=== PATIENT | female | born 2000 | race Caucasian/White ===

== ENCOUNTER 2020-07-05 12:39 | Emergency (ER) | payer BC, SELFPAY ==
[2020-07-05 13:02] VITALS: BP 111/66; PULSE 90; RESP 18; TEMP 37.1; O2SAT 99
--- NOTE | 2020-07-05 13:03 | ED.URI ---
HPI - URI/Sore Throat General Chief Complaint: Upper Respiratory Infection Stated Complaint: congestion/sore throat Source: patient Mode of arrival: ambulatory Limitations: no limitations History of Present Illness HPI Narrative: Patient is a 20-year-old female who presents complaining of sore throat x2 days. She also reports mild congestion. She denies fever, cough or body aches. She reports Covid test 1 week ago for school which was negative. She denies taking [id number] medications for symptom relief at this time. elicited complaint: sore throat Related Data Home Medications Medication Instructions Recorded Confirmed No Home Medications 07/05/20 07/05/20 Allergies Allergy/AdvReac Type Severity Reaction Status Date / Time No Known Drug Allergies Allergy Mild Unverified 03/15/16 07:51 Review of Systems Review of Systems: Narrative: CONSTITUTIONAL: Reports intermittent fever and chills EYES: Denies visual changes, redness, or discharge. ENT: Reports sore throat CARDIOVASCULAR: Denies chest pain, palpitations, or edema. RESPIRATORY: Denies cough or dyspnea. GASTROINTESTINAL: Denies abdominal pain, nausea, vomiting, or diarrhea. GENITOURINARY: Denies dysuria or hematuria. SKIN: Denies rash or itching. MUSCULOSKELETAL: Denies back pain, joint pain, or myalgia. NEUROLOGIC: Denies headache, numbness, dizziness, or weakness. PSYCHIATRIC: Denies anxiety or depression. [facility] Past Medical History Medical History (Updated 07/05/20 @ 13:21 by EVARISTO Conner) No significant past medical history Surgical History Surgical History (Updated 07/05/20 @ 13:04 by EVARISTO Conner) No significant past surgical history Family History Family History (Updated 07/05/20 @ 13:04 by EVARISTO Conner) Other No significant family history Social History Social History (Updated 07/05/20 @ 13:05 by EVARISTO Conner) Smoking status: Never smoker Alcohol intake: never Substance use: never Living arrangements: with family Gender identity (if verbalized by the patient): Female Comments At the time of signature, I have reviewed and agree with nursing past medical, surgical, social, and family history unless otherwise noted. Please see nursing chart for further information. There is no relevant family history pertinent to the presenting complaint. Exam Narrative: Exam Narrative: GENERAL: Well-appearing, well-nourished, and in no acute distress. HEAD: Normocephalic, atraumatic. EYES: No redness or drainage. ENT: Mucous membranes pink and moist. Throat normal with mild erythema. Uvula midline. NECK: AROM. Supple. No lymphadenopathy. CHEST: No respiratory distress. HEART: Regular rate and rhythm. EXTREMITIES: Normal range of motion. SKIN: Warm, dry, no rash. NEURO: No focal deficits. Alert and oriented x3. Gait steady. PSYCH: Normal affect. No signs of depression or anxiety. MDM - URI/Sore Throat MDM Narrative Medical decision making narrative: Patient's rapid Covid is positive at this time. Discussed quarantine. Discussed treatment of symptoms. Patient is aware that if she develops chest pain or shortness of breath that she is to go to the emergency department immediately. Patient is stable for discharge home with outpatient follow-up as needed Differential Diagnosis Differential diagnosis: Likely upper respiratory infection, viral infection and other (Covid) Lab Data Labs: Rapid Covid positive Critical Care Time Critical Care Time Critical Care Time: No Discharge Plan Discharge Clinical Impression: COVID-19 Patient Disposition: Home, Self-Care Condition: Stable Instructions: COVID-19 (Coronavirus Disease 2019) (ED) Prescriptions: No Action No Home Medications RF: 0 Follow-up/Referrals: Marli Santiago MD [Primary Care Provider] - Stand Alone Forms: Work/School Release IP Time of Disposition: 13:21
== END 2020-07-05 13:33 | disposition home or self-care (01) ==
PROVIDERS: Emergency Provider Nurse Practitioner; PCP Pediatrics
DX: U07.1 COVID-19 (principal)
CPT/HCPCS: 87081; 87426; 87804; 87880; 99213; C9803; G0463

== ENCOUNTER 2020-10-21 19:00 | Emergency (ER) | payer BC, SELFPAY ==
--- NOTE | ~2020-10-21 | XR_ITS ---
EXAMINATION: XR hand LT min 3V DATE: 10/21/2020 19:30 INDICATION: Left hand pain. TECHNIQUE: 3 views of left hand were obtained. COMPARISON: None. FINDINGS: Bone alignment is normal. No fracture. Joint spaces are well maintained. IMPRESSION: 1. Normal left hand. Reviewed, dictated and finalized at location A. IMPRESSION: 1. Normal left hand.
[2020-10-21 19:03] VITALS: BP 131/88; PULSE 66; RESP 20; TEMP 36.2; O2SAT 100
[2020-10-21 19:45] VITALS: BP 155/87; PULSE 78; RESP 14; O2SAT 97
--- NOTE | 2020-10-21 19:47 | ED.GENADULT ---
HPI - General Adult General Chief complaint: Extremity Injury, Upper Stated complaint: hit by softball on left hand Time Seen by Provider: 10/21/20 19:02 Source: RN notes reviewed History of Present Illness HPI narrative: Patient presents emergency room from home for left hand pain. Patient states that approximately 130 today she was playing third base in baseball when a line drive with his head at her. She states that a line drive directly in the palm of her left hand was wearing a glove states that since that time she is had pain in her left hand worse with making a fist for pain in the wrist back she denies any other trauma or injury she took ibuprofen at approximately 2:00 denies any numbness or tingling in extremities Related Data Allergies Allergy/AdvReac Type Severity Reaction Status Date / Time No Known Drug Allergies Allergy Mild Unknown Verified 10/21/20 19:40 Review of Systems Review of Systems: Narrative: Gen.: Denies fevers or chills Musculoskeletal: See HPI Neuro: Denies numbness, tingling, weakness Skin: Denies rash Endo: Denies DM PMFSH Past Medical History Medical History (Updated 10/21/20 @ 19:50 by Hudson Ovalles DO) No significant past medical history Surgical History Surgical History (Updated 07/05/20 @ 13:04 by EVARISTO Conner) No significant past surgical history Family History Family History (Updated 07/05/20 @ 13:04 by EVARISTO Conner) Other No significant family history Social History Social History Smoking status: Never smoker Alcohol intake: never Substance use: never Gender identity (if verbalized by the patient): Female Exam Narrative: Exam Narrative: APPEARANCE: No acute distress, nontoxic, resting in bed Eyes: EOMI HEENT: Normocephalic, atraumatic, RESPIRATORY: No respiratory distress MUSCULOSKELETAl: Tender to palpation to the palmar aspect of the hand mild swelling no ecchymosis no tenderness of all 5 digits with full flexion-extension of all 5 MCP and IP joints, capillary refill less than 3 seconds in all 5 digits radial pulse 2+ neurovascular intact no tenderness to palpation of the wrist with pain with full extension of the wrist NEURO: Awake and alert. Following commands, speech normal, no focal deficits SKIN:: Warm, dry. Normal Color no rash or lesions Course Course Emergency Course: Discussed with patient results of workup and diagnosis. Discussed need for follow-up with primary care, proper use of medication, and reasons to return to the emergency department. Patient understands and agrees to current treatment plan Vital Signs Vital signs: Vital Signs Temperature 97.2 F L 10/21/20 19:03 Pulse Rate 66 10/21/20 19:03 Respiratory Rate 20 10/21/20 19:03 Blood Pressure 131/88 10/21/20 19:03 Pulse Oximetry 100 10/21/20 19:03 Temperature 97.2 F L 10/21/20 19:03 Pulse Rate 66 10/21/20 19:03 Respiratory Rate 20 10/21/20 19:03 Blood Pressure 131/88 10/21/20 19:03 Pulse Oximetry 100 10/21/20 19:03 Medical Decision Making Vital Signs Vital Signs: Vital Signs Temperature 97.2 F L 10/21/20 19:03 Pulse Rate 66 10/21/20 19:03 Respiratory Rate 20 10/21/20 19:03 Blood Pressure 131/88 10/21/20 19:03 Pulse Oximetry 100 10/21/20 19:03 Temperature 97.2 F L 10/21/20 19:03 Pulse Rate 66 10/21/20 19:03 Respiratory Rate 20 10/21/20 19:03 Blood Pressure 131/88 10/21/20 19:03 Pulse Oximetry 100 10/21/20 19:03 Imaging Data Radiologist's impression: ITS Impressions Hand X-Ray 10/21/20 19:31 IMPRESSION: 1. Normal left hand. Discharge Plan Discharge Clinical Impression: Contusion of hand, left Patient Disposition: Home, Self-Care Condition: Stable Instructions: Antibiotic Form, Contusion in Adults (ED) Additional Instructions: Return for increasing pain, numbness or tingling in the extremiti
== END 2020-10-21 19:45 | disposition home or self-care (01) ==
PROVIDERS: Emergency Provider Emergency Medicine; PCP Pediatrics
DX: S60.222A Contusion of left hand, initial encounter (principal); W21.07XA Struck by softball, initial encounter; Y93.64 Activity, baseball
CPT/HCPCS: 73130; 99283

== ENCOUNTER 2022-11-10 09:10 | Outpatient (CLI) | payer BC, SELFPAY ==
--- NOTE | ~2022-11-10 | XR_ITS ---
Clinical Indication: Positive TB skin test PA and lateral views of the chest: Comparison: 03/15/2016 Findings: The lungs are clear, without evidence of focal consolidation or pleural effusion. Cardiome diastinal silhouette is within normal limits. Bones and soft tissues are unremarkable. Impression: Normal chest. Reviewed, dictated and finalized at [facility]. Impression: Normal chest.
[2022-11-15 12:57] LABS: NIL 0.03 IU/mL; Quantiferon TB Plus, 1T NEGATIVE (NEGATIVE)
== END 2022-11-10 09:11 | disposition home or self-care (01) ==
PROVIDERS: PCP Family Medicine; Visit Provider Nurse Practitioner Family
DX: A18.4 Tuberculosis of skin and subcutaneous tissue (principal)
CPT/HCPCS: 36415; 71046; 86480

== ENCOUNTER 2023-08-28 14:57 | Emergency (ER) | payer BC, SELFPAY ==
--- NOTE | ~2023-08-28 | XR_ITS ---
EXAMINATION: XR chest 2V DATE: 08/28/2023 15:52 INDICATION: Chest pain. TECHNIQUE: Frontal and lateral views of the chest were obtained. COMPARISON: Chest 2 views 11/10/2022 FINDINGS: There is no pneumonia, pleural effusion, or pneumothorax. The heart size is normal. IMPRESSION: 1. No acute cardiopulmonary disease. Reviewed, dictated and finalized at location A.
--- NOTE | 2023-08-28 14:58 | ECG_ITS ---
Measurements Intervals [place] Rate: 72 P: 57 ME: 159 QRS: 46 QRSD: 94 T: 31 QT: 378 QTc: 414 Interpretive Statements SINUS RHYTHM WITH SINUS ARRHYTHMIA BASELINE ARTIFACT- I, II, AVR, AVL NORMAL ECG NO PREVIOUS ECG AVAILABLE FOR COMPARISON Electronically Signed On 08-28-2023 15:06:26 CDT by Elliott Corrales D.O.
[2023-08-28 15:11] VITALS: BP 140/90; PULSE 75; RESP 17; TEMP 36.5; O2SAT 100
[2023-08-28 15:34] LABS: Basophils Percent Auto 0.4 % (0.2-1.2); Eosinophils Absolute Auto 0.1 K/mm3 (0-0.3); Eosinophils Percent Auto 0.8 % (0-4.4); Hematocrit 43.1 % (37.0-47.0); Hemoglobin 14.7 g/dL (12.0-15.0); Immature Granulocyte Absolute 0.02 K/mm3 (0.00-0.031); Immature Granulocyte Percent A 0.2 % (0-0.5); Lymphocytes Absolute Auto 2.62 K/mm3 (0.9-3.2); Lymphocytes Percent Auto 30.8 % (18.3-44.2); Mean Corpuscular HGB Conc 34.1 g/dl (32-36); Mean Corpuscular Volume 90.9 fl (80-100); Mean Platelet Volume 9.7 fl (7.4-10.4); Monocytes Absolute Auto 0.6 K/mm3 (0.1-0.6); Monocytes Percent Auto 7.3 % (2.6-8.5); Neutrophils Absolute Auto 5.1 K/mm3 (1.3-6.7); Neutrophils Percent Auto 60.5 % (45.5-73.1); Platelet Count Result 272 k/mm3 (150-375); Red Blood Count 4.74 M/mm3 (4.2-5.4); Red Cell Distribution Width 11.7 % (11.5-14.5); White Blood Count 8.5 K/mm3 (4.5-10.0)
[2023-08-28 15:41] LABS: Alanine Aminotransferase 21 U/L (6-35); Albumin Level 4.7 g/dL (3.5-5.1); Alkaline Phosphatase 85 U/L (38-126); Anion Gap 10 mmol/L (8-16); Aspartate Amino Transferase 25 U/L (14-36); Bilirubin,Total 0.6 mg/dL (0.2-1.3); Blood Urea Nitrogen 11 mg/dL (7-17); Calcium 9.7 mg/dL (8.4-10.2); Carbon Dioxide 25 mmol/L (22-30); Chloride 104 mmol/L (98-107); Estimated CRCL calculation 108 ml/min; Estimated Glomerular Filt Rate > 60; Glucose 89 mg/dL (65-110); Lipase 75 U/L (23-300); Potassium 3.6 mmol/L (3.4-5.0); Sodium 139 mmol/L (137-145)
[2023-08-28 15:45] LABS: INR 0.9; Prothrombin Time 12.5 Seconds (11.1-14.7)
[2023-08-28 15:46] LABS: Partial Thromboplastin Time 26.3 SECONDS (22.3-36.8)
[2023-08-28 15:52] LABS: Troponin I < 0.012 ng/mL (0.000-0.034)
[2023-08-28 17:19] LABS: D Dimer < 0.27 ug/mL (<0.48)
--- NOTE | 2023-08-28 17:22 | ED.CHESTPAIN ---
HPI - Chest Pain General Chief Complaint: Chest Pain Stated Complaint: chest pain Time Seen by Provider: 08/28/23 16:22 History of Present Illness HPI narrative: Patient is a 23-year-old female who presents ER with left-sided chest pain. Intermittent. Can last seconds or several minutes. No runny nose or sore throat or productive cough. No association with exertion. Occasional has some anxiety but is unsure if anxiety is provoked by the pain. She is on control. No hemoptysis. No productive cough. Related Data Allergies Allergy/AdvReac Type Severity Reaction Status Date / Time No Known Drug Allergies Allergy Mild Unknown Verified 02/23/22 15:17 Review of Systems Review of Systems: All systems reviewed & are unremarkable except as noted in HPI and below Constitutional: Constitutional: Reports no additional constitutional complaints ENT: Reports system reviewed and no additional complaints, except as documented Cardiovascular: Cardiovascular: Reports chest pain, Denies rapid heart rate and Denies radiating jaw, neck or arm pain Respiratory: Respiratory: Reports no additional respiratory complaints Gastrointestinal: Gastrointestinal: Reports no additional gastrointestinal complaints [facility] Past Medical History Medical History BMI 36.0-36.9,adult BMI 37.0-37.9, adult No significant past medical history Surgical History Surgical History No significant past surgical history Family History Family History Father Diabetes mellitus Mother No problems noted. Sibling No problems noted. Other No significant family history Social History Social History Smoking status: Never smoker Second hand tobacco smoke exposure: No Alcohol intake: current Substance use: never Substance use type: does not use Living arrangements: dorm student housing Occupation/Education: student Additional occupation/education comments: [employer]-psych major/softball scholarship Gender identity (if verbalized by the patient): Female Exam Narrative: GENERAL: Well-appearing, morbidly obese, and in no acute distress. HEAD: Normocephalic, atraumatic. ENT: Mucous membranes moist. CHEST: Clear to auscultation. No respiratory distress. HEART: Regular rate and rhythm. Normal peripheral pulses. ABDOMEN: Soft, nontender, nondistended. EXTREMITIES: Normal range of motion. No edema. SKIN: Warm, dry, no rash. NEURO: Alert and oriented x3. PSYCH: Normal mood and affect. Course Course Emergency Course: No pain here. Unremarkable evaluation. D-dimer negative. Not felt to have an iron DVT. Likely pleurisy. Discussed treatment. Discharged. Vital Signs Vital signs: Vital Signs Temperature 97.7 F 08/28/23 15:11 Pulse Rate 75 08/28/23 15:11 Respiratory Rate 17 08/28/23 15:11 Blood Pressure 140/90 08/28/23 15:11 Pulse Oximetry 100 08/28/23 15:11 Oxygen Delivery Room Air 08/28/23 15:11 Temperature 97.7 F 08/28/23 15:11 Pulse Rate 75 08/28/23 15:11 Respiratory Rate 17 08/28/23 15:11 Blood Pressure 140/90 08/28/23 15:11 Pulse Oximetry 100 08/28/23 15:11 Oxygen Delivery Room Air 08/28/23 15:11 MDM - Chest Pain Lab Data 08/28/23 15:05 08/28/23 15:05 Labs: Lab Results 08/28/23 Range/Units 15:05 WBC 8.5 (4.5-10.0) K/mm3 RBC 4.74 (4.2-5.4) M/mm3 Hgb 14.7 (12.0-15.0) g/dL Hct 43.1 (37.0-47.0) % MCV 90.9 (80-100) fl MCH 31.0 (26-34) pg MCHC 34.1 (32-36) g/dl RDW 11.7 (11.5-14.5) % Plt Count 272 (150-375) k/mm3 MPV 9.7 (7.4-10.4) fl Immature Gran % (Auto) 0.2 (0-0.5) % Neut % (Auto) 60.5 (45.5-73.1) % Lymph % (Auto) 30.8 (18.3-44.2) % [place] % (Auto
[2023-08-28 17:57] VITALS: BP 138/86; PULSE 84; RESP 16; O2SAT 98
== END 2023-08-28 17:58 | disposition home or self-care (01) ==
PROVIDERS: Emergency Provider Emergency Medicine; PCP Family Medicine
DX: R09.1 Pleurisy (principal)
CPT/HCPCS: 36415; 71046; 80053; 83690; 84484; 85025; 85380; 85610; 85730; 93005; 99284

== ENCOUNTER 2023-11-18 10:44 | Emergency (ER) | payer BC, SELFPAY ==
[2023-11-18 11:15] VITALS: BP 120/72; PULSE 80; RESP 16; TEMP 36.4; O2SAT 100
--- NOTE | 2023-11-18 11:31 | ED.URI ---
HPI - URI/Sore Throat General Chief Complaint: Upper Respiratory Infection Stated Complaint: Strep Symptoms Time Seen by Provider: 11/18/23 11:43 Source: patient and RN notes reviewed Mode of arrival: ambulatory Limitations: no limitations History of Present Illness HPI Narrative: 23 year old female presents concern for 4 day history of sore throat, cough, nasal congestion and drainage. She reports exposure to strep throat from a co-worker. Reports she has been taking ibuprofen with little relief. She denies fever, body aches, chills, sweats MD elicited complaint: cough and sore throat Related Data Home Medications Medication Instructions Recorded Confirmed norgestrel 0.3 mg-ethinyl 1 tablet PO DAILY 11/18/23 11/18/23 estradiol 30 mcg tablet (Low-Ogestrel (28)) Allergies Allergy/AdvReac Type Severity Reaction Status Date / Time No Known Drug Allergies Allergy Mild Unknown Verified 11/18/23 11:37 Review of Systems Review of Systems: CONSTITUTIONAL: Denies malaise, chills, sweats, or fever. EYES: Denies visual changes, redness, or discharge. ENT: Reports rhinorrhea, congestion, and sore throat. CARDIOVASCULAR: Denies chest pain, palpitations, or edema. RESPIRATORY: Reports cough. Denies dyspnea. GASTROINTESTINAL: Denies abdominal pain, nausea, vomiting, diarrhea SKIN: Denies rash or itching. MUSCULOSKELETAL: Denies myalgia. NEUROLOGIC: Denies headache. All systems reviewed & are unremarkable except as noted in HPI and below PMFSH Past Medical History Medical History BMI 36.0-36.9,adult BMI 37.0-37.9, adult No significant past medical history Surgical History Surgical History No significant past surgical history Family History Family History Father Diabetes mellitus Mother No problems noted. Sibling No problems noted. Other No significant family history Social History Social History Smoking status: Never smoker Second hand tobacco smoke exposure: No Alcohol intake: current Substance use: never Substance use type: does not use Living arrangements: dorm student housing Occupation/Education: student Additional occupation/education comments: [employer]-psych major/softball scholarship Gender identity (if verbalized by the patient): Female Comments At time of signature, agree with nursing past medical, surgical, social and family history. There is no relevant family history pertinent to the presenting complaint Exam Narrative: GENERAL: Well-appearing, well-nourished, and in no acute distress. HEAD: Normocephalic EYES: PERRLA, conjunctivae clear ENT: Nares clear, turbinates edematous and erythematous, clear discharge. Mucous membranes moist. TM pearly perla with sharp light reflex bilaterally; no tragal tenderness. Oropharynx not erythematous without lesions. Tonsils not enlarged and without exudate, no drooling, no hoarseness, no trismus, uvula midline. NECK: Supple. No lymphadenopathy CHEST: Clear to auscultation, breath sounds equal. No wheezing, rhonchi, rales, or stridor. No respiratory distress, speaks in full sentences. HEART: Regular rate and rhythm. No murmur heard. SKIN: Warm, dry, no rash. NEURO: Alert and oriented x3. PSYCH: Normal mood and affect Course Course Emergency Course: Patient is aware of diagnosis, understands and agrees to treatment plan. Anticipatory guidance given. Patient agrees to follow-up as directed and is aware of reasons to seek care at the emergency department. Portions of this record may have been created with voice recognition software Level of Care: Express Care Visit Vital Signs Vital signs: Vital Signs Temperature 97.5 F L 11/18/23 11:15 Pulse Rate 80 11/18/23 11:15 Respir
== END 2023-11-18 11:56 | disposition home or self-care (01) ==
PROVIDERS: Emergency Provider Nurse Practitioner; PCP Family Medicine
DX: J06.9 Acute upper respiratory infection, unspecified (principal)
CPT/HCPCS: 87081; 87880; 99213; G0463

== ENCOUNTER 2024-06-20 08:17 | Outpatient (CLI) | payer BC, SELFPAY ==
--- NOTE | ~2024-06-20 | US_ITS ---
EXAMINATION TYPE: US breast LT limited COMPARISON: NONE REASON FOR STUDY: LUOQ breast cyst TECHNIQUE: Targeted sonographic evaluation of the left breast was performed. INTERPRETATION: Sonographic imaging of the left breast in the areas of concern demonstrates no solid or cystic lesion . No dilated ducts seen. No sonographic abnormality seen in the region scanned. IMPRESSION: No sonographic abnormality seen in the regions scanned. BI-RADS CATEGORY: BI-RADS 1: Normal. Reviewed, dictated and finalized at location . [facility]
== END 2024-06-20 08:18 | disposition home or self-care (01) ==
PROVIDERS: PCP Family Medicine; Visit Provider Obstetrics & Gynecology
DX: N60.02 Solitary cyst of left breast (principal)
CPT/HCPCS: 76642